=== PATIENT | male | born 1985 | race Caucasian/White ===

== ENCOUNTER 2017-12-31 14:09 | Emergency (ER) | payer MEDICAID ==
[~2017-12-31] VITALS: Ht 177.8 cm; Wt 88.5 kg
[2017-12-31 14:35] VITALS: BP 133/77
[2018-01-01] MEDS ORDERED: BACTRIM (04:44)
== END 2017-12-31 14:36 | disposition home or self-care (01) ==
LOC: ER 14:11
DX: L08.9 Local infection of the skin and subcutaneous tissue, unspecified (principal); B95.8 Unspecified staphylococcus as the cause of diseases classified elsewhere
CPT/HCPCS: 99283; A4663

== ENCOUNTER 2018-01-01 04:33 | Emergency (ER) | payer MEDICAID ==
[~2018-01-01] VITALS: Ht 177.8 cm; Wt 88.5 kg
[2018-01-01] MEDS ORDERED: BACTRIM (04:44)
--- NOTE | 2018-01-01 04:45 | NUR ---
DR RICH BOO MD AT BEDSIDE FOR MSE.
[2018-01-01] MEDS ORDERED: VANCOMYCIN IV 1,000 MG in IV DEXTROSE 5% 250 ML IV ONE (05:00)
[2018-01-01] MEDS ORDERED: VANCOMYCIN IV 200 ML ONE (05:10)
--- NOTE | 2018-01-01 06:58 | NUR ---
Patient discharged to home in stable conditon. Written and verbal after care instructions given. Patient verbalizes understanding of instructions. IV removed w/ catheter intact
[2018-01-01 07:00] VITALS: BP 141/86
== END 2018-01-01 07:01 | disposition home or self-care (01) ==
LOC: ER 04:35
DX: L03.115 Cellulitis of right lower limb (principal); L03.011 Cellulitis of right finger
CPT/HCPCS: 96365; 99284; A4217; A4663; J3370

== ENCOUNTER 2018-01-02 04:50 | Emergency (ER) | payer MEDICAID ==
[~2018-01-02] VITALS: Ht 177.8 cm; Wt 88.5 kg
[~2018-01-02 04:50] MED LIST: BACTRIM
--- NOTE | 2018-01-02 05:00 | NUR ---
DR RUTH BOO MD AT BEDSIDE FOR MSE.
[2018-01-02] MEDS ORDERED: ONDANSETRON IV *ER 4 MG/2 ML VIAL IV ONE (05:15)
[2018-01-02] MEDS ORDERED: SODIUM BICARBONATE 4.2 % (NEUT) 5 ML VIAL TP ONE (05:15)
[2018-01-02] MEDS ORDERED: LIDOCAINE HCL 2% 20 ML VIAL TP ONE (05:15)
[2018-01-02] MEDS ORDERED: VANCOMYCIN IV 1,000 MG in IV DEXTROSE 5% 250 ML IV ONE (05:15)
[2018-01-02] MEDS ORDERED: HYDROMORPHONE 1 MG/1 ML DISP.SYRIN IV ONE ×2 (05:15→06:15)
[2018-01-02] MEDS ORDERED: HYDROMORPHONE 2 MG/1 ML DISP.SYRIN ONE ×2 (05:19→06:15)
[2018-01-02] MEDS ORDERED: ONDANSETRON 4 MG/2 ML VIAL ONE (05:19)
[2018-01-02] MEDS ORDERED: SODIUM BICARBONATE 4.2 % (NEUT) 5 ML VIAL ONE (05:20)
[2018-01-02] MEDS ORDERED: VANCOMYCIN IV 200 ML ONE (05:21)
--- NOTE | 2018-01-02 05:32 | NUR ---
RADIOLOGY AT BEDSIDE FOR XRAY
--- NOTE | 2018-01-02 06:53 | NUR ---
Patient discharged to home in stable conditon. Written and verbal after care instructions given. Patient verbalizes understanding of instructions. IV removed w/ catheter intact. Pressure applied to site
[2018-01-02 06:54] VITALS: BP 133/84
== END 2018-01-02 06:55 | disposition home or self-care (01) ==
LOC: ER 04:51
DX: L03.115 Cellulitis of right lower limb (principal); L03.011 Cellulitis of right finger
CPT/HCPCS: 10060; 73140; 96365; 96375; 96376; 99284; A4663; J1170 ×2; J2405; J3370; J3490 ×2

== ENCOUNTER 2018-01-05 05:14 | Emergency (ER) | payer MEDICAID ==
[~2018-01-05] VITALS: Ht 177.8 cm; Wt 88.5 kg
--- NOTE | 2018-01-05 05:33 | NUR ---
MD GRACIA AT BEDSIDE FOR MSE
[2018-01-05] MEDS ORDERED: VANCOMYCIN IV 1,000 MG in IV DEXTROSE 5% 250 ML IV ONE (06:00)
--- NOTE | 2018-01-05 06:52 | NUR ---
Patient discharged to home in stable conditon. Written and verbal after care instructions given. Patient verbalizes understanding of instructions. Patient able to ambulate unassisted with a steady gait. Patient left with all personal belongings.
--- NOTE | 2018-01-05 06:52 | NUR ---
PHARM NOTE: VANCOMYCIN IV ENDED AT 651
[2018-01-05 07:03] VITALS: BP 152/92
== END 2018-01-05 06:52 | disposition home or self-care (01) ==
LOC: ER 05:18
DX: L03.115 Cellulitis of right lower limb (principal); Z48.01 Encounter for change or removal of surgical wound dressing
CPT/HCPCS: 96365; 99284; A4663

== ENCOUNTER 2018-11-28 15:54 | Emergency (ER) | payer SELFPAY ==
[~2018-11-28] VITALS: Ht 177.8 cm; Wt 90.7 kg
[2018-11-28 17:21] VITALS: BP 136/76
== END 2018-11-28 17:21 | disposition home or self-care (01) ==
LOC: ER 15:56
DX: L03.116 Cellulitis of left lower limb (principal); Z79.899 Other long term (current) drug therapy
CPT/HCPCS: A4663

== ENCOUNTER 2018-12-28 16:55 | Emergency (ER) | payer OTHER ==
[~2018-12-28] VITALS: Ht 177.8 cm; Wt 81.6 kg
[2018-12-28 18:20] LABS: BASOPHILS # (AUTO) 0.1 K/uL (0.0-8.0); BASOPHILS % (AUTO) 1.8 % (0.0-2.0); EOSINOPHILS # (AUTO) 0.2 K/uL (0.0-0.7); HEMATOCRIT 41.8 % (36.7-47.1); HEMOGLOBIN 14.1 g/dL (12.5-16.3); LYMPHOCYTES # (AUTO) 1.1 K/uL (20.0-40.0); LYMPHOCYTES % (AUTO) 20.5 % (20.5-51.5); MEAN CORPUSCULAR HEMOGLOBIN 28.4 uug (23.8-33.4); MEAN CORPUSCULAR HGB CONC 34 g/dL (32.5-36.3); MONOCYTES # (AUTO) 0.5 K/uL (2.0-10.0); MONOCYTES % (AUTO) 9.3 % (0.0-11.0); NEUTROPHILS # (AUTO) 3.3 K/uL (1.8-8.9); NEUTROPHILS % (AUTO) 64.4 % (38.5-71.5); PLATELET COUNT (AUTO) 224 K/uL (152-348); RED BLOOD CELL COUNT(AUTO) 4.97 MIL/uL (4.06-5.63); WHITE BLOOD COUNT (AUTO) 5.2 K/uL (3.6-10.2)
[2018-12-28 18:28] LABS: CREATININE 1.3 mg/dL (0.6-1.3)
[2018-12-28 18:40] LABS: BILIRUBIN,DIRECT 0.1 mg/dL (0.0-0.2); BILIRUBIN,TOTAL 0.3 mg/dL (0.2-1.0); TOTAL PROTEIN, SERUM 7.2 g/dL (6.4-8.2)
--- NOTE | 2018-12-28 18:52 | NUR ---
PATIENT IS IN ROOM 4A. C/O BILATERAL LOWER EXTREMITY SWELLING...
--- NOTE | 2018-12-28 19:09 | NUR ---
HAND OFF REPORT TO JEAN CLAUDE COHEN
--- NOTE | 2018-12-28 19:15 | NUR ---
hAND OFF RECEIVED FROM OUTGOING DAY SHIFT RN Patient discharged to home in stable conditon. Written and verbal after care instructions given. Patient verbalizes understanding of instructions. AMBULATORY WITH STABLE GAIT ALL BELONGINGS WITH PT
[2018-12-28 19:31] VITALS: BP 130/91
== END 2018-12-28 19:15 | disposition home or self-care (01) ==
LOC: ER 16:55
DX: R60.9 Edema, unspecified (principal); Z79.2 Long term (current) use of antibiotics
CPT/HCPCS: 36415; 85025; A4663

== ENCOUNTER 2024-12-18 05:34 | Emergency (ER) | payer MEDICAID, OTHER ==
[~2024-12-18] VITALS: Ht 177.8 cm; Wt 90.7 kg
[2024-12-18 05:57] VITALS: BP 152/88
[2024-12-18 06:29] LABS: PLATELET COUNT (AUTO) 284 K/uL (152-348); RED BLOOD CELL COUNT(AUTO) 4.72 MIL/uL (4.06-5.63); RED CELL DISTRIBUTION WIDTH 14.8 % (12.1-16.2); WHITE BLOOD COUNT (AUTO) 5.8 K/uL (3.6-10.2)
[2024-12-18 06:39] LABS: CREATININE 1.1 mg/dL (0.6-1.3); SODIUM SERUM 141.0 mmol/L (136-145); UREA NITROGEN, BLOOD 14.0 mg/dL (7-18)
[2024-12-18 06:44] LABS: ASPARTATE AMINOTRANSFERASE 31.0 U/L (15-37); TOTAL PROTEIN, SERUM 7.1 g/dL (6.4-8.2)
[2024-12-18] MEDS ORDERED: FLAS1KIT2 TP (07:18)
[2024-12-18] MEDS ORDERED: FLAS1EAC2 TP (07:18)
[2024-12-18] MEDS ORDERED: SULF1TAB48 PO (07:18)
[2024-12-18 07:45] VITALS: BP 152/85; TEMP 98.2; O2SAT 98
[2024-12-18 08:30] LABS: EOSINOPHILS % (MANUAL) 10 % (0-8); LYMPHOCYTES % (MANUAL) 16 % (20-40); MONOCYTES % (MANUAL) 2 % (2-10); MYELOCYTES % 1 % (0-0); NEUTROPHILS % (MANUAL) 71 % (42-75); PLATELET ESTIMATE ADEQUATE
== END 2024-12-18 07:45 | disposition home or self-care (01) ==
LOC: ER 05:47
DX: L97.829 Non-pressure chronic ulcer of other part of left lower leg with unspecified severity (principal); L97.819 Non-pressure chronic ulcer of other part of right lower leg with unspecified severity; E46 Unspecified protein-calorie malnutrition; E88.810 Metabolic syndrome; I10 Essential (primary) hypertension; Z87.820 Personal history of traumatic brain injury; Z68.28 Body mass index [BMI] 28.0-28.9, adult
CPT/HCPCS: 36415; 70030-TC; 85730; 86140; A4606; A4663

== ENCOUNTER 2025-02-12 07:23 | Emergency (ER) | payer SELFPAY ==
[~2025-02-12] VITALS: Ht 177.8 cm; Wt 95.3 kg
[~2025-02-12 07:23] MED LIST changes: +FLAS1EAC2 TP; +FLAS1KIT2 TP; +SULF1TAB48 PO
[2025-02-12 07:31] VITALS: BP 142/94
[2025-02-12] MEDS ORDERED: SULF1TAB48 PO (08:55)
[2025-02-12] MEDS ORDERED: CEPH500C2 PO (08:55)
[2025-02-12 10:42] VITALS: BP 136/88; O2SAT 98
== END 2025-02-12 10:42 | disposition home or self-care (01) ==
LOC: ER 07:23
DX: L97.929 Non-pressure chronic ulcer of unspecified part of left lower leg with unspecified severity (principal); L97.919 Non-pressure chronic ulcer of unspecified part of right lower leg with unspecified severity; L03.90 Cellulitis, unspecified; K94.23 Gastrostomy malfunction; Z87.820 Personal history of traumatic brain injury
CPT/HCPCS: A4606; A4663

== ENCOUNTER 2025-04-03 05:00 | Emergency (ER) | payer SELFPAY ==
[~2025-04-03] VITALS: Ht 177.8 cm; Wt 131.5 kg
[~2025-04-03 05:00] MED LIST changes: +CEPH500C2 PO
[2025-04-03 05:08] VITALS: BP 167/101
[2025-04-03] MEDS ORDERED: DOXY-461 PO (05:54)
[2025-04-03 06:01] VITALS: BP 159/95; O2SAT 98
== END 2025-04-03 06:02 | disposition home or self-care (01) ==
LOC: ER 05:03
DX: L97.919 Non-pressure chronic ulcer of unspecified part of right lower leg with unspecified severity (principal); L97.929 Non-pressure chronic ulcer of unspecified part of left lower leg with unspecified severity; L03.115 Cellulitis of right lower limb; L03.116 Cellulitis of left lower limb; R03.0 Elevated blood-pressure reading, without diagnosis of hypertension; I87.2 Venous insufficiency (chronic) (peripheral); E66.01 Morbid (severe) obesity due to excess calories; Z87.820 Personal history of traumatic brain injury; Z88.7 Allergy status to serum and vaccine
CPT/HCPCS: A4606; A4663